=== PATIENT | female | born 1955 | race Caucasian/White ===

== ENCOUNTER 2017-06-13 20:14 | Observation (INO) | payer OTHER ==
[~2017-06-13] VITALS: Ht 177.8 cm; Wt 95.5 kg
[~2017-06-13 20:14] MED LIST: ASPI81CH CHEW; PLAQ200T PO
[2017-06-13 21:00] VITALS: BP 121/67; PULSE 74; RESP 18; TEMP 98; O2SAT 98
[2017-06-13 21:22] VITALS: PULSE 66
[2017-06-13] MEDS ORDERED: SODIUM CHLORIDE 0.9% FLUSH 10 ML FLUSH IV FLUSH PRN (22:00)
[2017-06-13] MEDS ORDERED: ONDANSETRON HCL 4 MG/2 ML VIAL IV PRN (22:00)
[2017-06-13] MEDS ORDERED: ACETAMINOPHEN 500 MG CPLT PO PRN (22:00)
[2017-06-13] MEDS ORDERED: ASPIRIN 81 MG CHEW TAB PO ONE (22:00)
[2017-06-14] VITALS: BP 129/61; PULSE 58; RESP 18; TEMP 98.4; O2SAT 95
[2017-06-14 00:20] VITALS: O2SAT 95
[2017-06-14 00:34] VITALS: PULSE 54
[2017-06-14 04:59] VITALS: BP 129/62; PULSE 56; RESP 18; TEMP 97.8; O2SAT 96
[2017-06-14] MEDS: NITROGLYCERIN 2% OINT 1 GM PACKET TOPICAL SCH ×2 (05:02)
[2017-06-14 08:01] VITALS: BP 131/60; PULSE 58; RESP 21; TEMP 98.5; O2SAT 96
--- NOTE | 2017-06-14 08:21 | HHI.DCPOC ---
Discharge Care Plan Diagnosis: (1) Chest pain, atypical Goals to Promote Your Health * To prevent worsening of your condition and complications * To maintain your health at the optimal level Directions to Meet Your Goals Take your medications as prescribed Follow your dietary instruction Follow activity as directed Keep your appointments as scheduled Take your immunizations and boosters as scheduled If your symptoms worsen call your PCP, if no PCP go to Urgent Care Center or Emergency Room Smoking is Dangerous to Your Health. Avoid second hand smoke Call the 24-hour hour crisis hotline for domestic abuse at Gian Monet Jun 14, 2017 08:21
--- NOTE | 2017-06-14 08:39 | HHI.HP ---
HPI Primary Care Physician Non-Staff Chief Complaint Left shoulder/chest pain History of Present Illness This is a 61-year-old female that presents to the chest pain center being transferred from [facility] to evaluate her discomfort. She states that she was awoke and yesterday at 5:00 in the morning with a left shoulder discomfort the pre-quickly radiated around to the left anterior chest wall. She states it hurt to move the left arm/shoulder. It lasted for greater than 16 hours. She states essentially resolve on its own while lying in the stretcher in the chest pain center. She had no shortness of breath, nausea, or diaphoresis. Nothing seemed to help the discomfort. She states she had a full cardiac workup by creative manager January of this year and [facility] including 2-D echo and stress testing and states that everything was okay. She is told that she may have a little bit of an enlarged heart but will continue to follow. Denies recent illness. Denies fevers or chills. Denies recent travel. Review of Systems General: Patient denies fevers, chills recent, and recent travel HEENT: Patient denies headache, sore throat, difficulty swallowing. Cardiovascular: Has the chest discomfort as mentioned above. Denies sensation of heart beating rapidly or irregularly. No syncope. Denies diaphoresis. Respiratory: Denies shortness of breath or inspirational chest discomfort. Denies coughing wheezing or hemoptysis. GI: Patient denies nausea, vomiting, diarrhea, abdominal pain, bloody stools. Musculoskeletal: Complains of left shoulder discomfort worsened with movement. Denies joint edema. Denies calf pain or edema. Neurovascular: Patient denies numbness, tingling, weakness in extremities. Denies headache. Endocrine: Denies polyuria and polydipsia. Hematologic: Denies easy bruising. Skin: Denies rash or itching. Past Family Social History Allergies: Coded Allergies: Tramadol (Verified Allergy, Severe, Nausea/Vomiting, 06/13/17) Past Medical History Lupus. Denies hypertension, hyperlipidemia, diabetes, and known CAD. Past Surgical History Cholecystectomy and hysterectomy. Reported Medications Reported Meds & Active Scripts Active Reported Plaquenil (Hydroxychloroquine Sulfate) 200 Mg Tab 200 Mg PO BID Take with food Aspirin 81 Mg Chew 162 Mg CHEW DAILY Active Ordered Medications Current Medications Medications (Trade) Dose Ordered Sig/Acacia Route Start Time Stop Time Status Last Admin (NS Flush) 2 ml UNSCH PRN IV FLUSH 06/13/17 22:00 (Tylenol) 500 mg Q4H PRN PO 06/13/17 22:00 06/13/17 22:05 (Zofran Inj) 4 mg Q6H PRN IV 06/13/17 22:00 (Pepcid) 20 mg BID PO 06/14/17 09:00 (Nitroglycerin 2% Oint) 1 inch Q6H TOPICAL 06/14/17 00:00 Family History She states that her father had an IL in his late 70s/early 80s. Social History Patient is a lifetime nonsmoker. Denies alcohol or illicit drugs. She is . Physical Exam Vital Signs Vital Signs Date Time Temp Pulse Resp B/P Pulse Ox O2 Delivery O2 Flow Rate FiO2 06/14/17 08:01 98.5 58 21 131/60 96 06/14/17 04:59 97.8 56 18 129/62 96 06/14/17 00:34 54 06/14/17 00:20 95 06/14/17 00:00 98.4 58 18 129/61 95 06/13/17 23:30 18 06/13/17 21:22 66 06/13/17 21:00 98.0 74 18 121/67 98 Physical Exam GENERAL: This is a well-nourished, well-developed patient, in no apparent distress. Patient speaks in clear complete sentences. Patient is pleasant. HEENT: Head is atraumatic and normocephalic. Neck is supple without lymphadenopathy and trachea is midline. No JVD or carotid bruits. CARDIOVASCULAR: Regular rate and rhythm without murmurs, gallops, or rubs. RESPIRATORY: Clear to auscultation. Breath sounds equal bilaterally. No wheezes , rales, or rhonchi. Chest wall is tender at left anterior chest wall. No use of accessory muscles. GASTROINTESTINAL: Abdomen is nontender, nondistended. Abdomen soft. No obvious pulsatile mass or bruit. No CVA tenderness. Strong femoral pulses bilaterally. Normal bowel sounds in all quadrants. MUSCULOSKELETAL: There is discomfort when palpating left anterior chest wall. Patient is moving upper and lower extremities freely. No calf tenderness or edema, no Homans sign. Strong pulses in upper and lower extremities. NEUROLOGICAL: Patient is alert and oriented. Cranial nerves 2-12 are grossly intact. No focal deficits and speech is clear. SKIN: No rash and turgor is normal. Imaging Chest x-ray reveals nothing acute. Course EKGs have been sinus rhythm to sinus bradycardia without significant ST segment depressions or elevations. Assessment and Plan Assessment and Plan * Atypical chest pain: Patient has had serial cardiac enzymes and EKGs for ruling out purposes. Her discomfort appears musculoskeletal and she recently had a cardiac workup in [place] at [facility] states was normal. She has been seen by Dr. Lenny Ojeda of cardiology in the [facility] and will be discharged home at this time. She should follow-up with her primary care physician. Resume all home medications. Patient is stable at this time. She is agreeable to this plan. Gian Monet Jun 14, 2017 08:39
[2017-06-14] MEDS ORDERED: FAMOTIDINE 20 MG TAB PO SCH (09:00)
== END 2017-06-14 09:31 | disposition home or self-care (01) ==
LOC: NEDDLT 20:14 → NEPGCP 20:24
PROVIDERS: ADMIT Internal Medicine Interventional Cardiology; ATTEND Internal Medicine Interventional Cardiology
DX: R07.89 Other chest pain (principal); R00.1 Bradycardia, unspecified; M79.602 Pain in left arm; M32.9 Systemic lupus erythematosus, unspecified; Z79.899 Other long term (current) drug therapy; Z79.82 Long term (current) use of aspirin
CPT/HCPCS: 71010; 71275; 80048; 82550; 83735; 84484; 85025; 85379; 85610; 85730; 93005; G0378; Q9967; 99281